=== PATIENT | female | born 1935 | race African-American/Black ===

== ENCOUNTER 2018-12-14 09:17 | Outpatient (CLI) | payer MEDICARE, BC, MEDICAID ==
[2018-12-14] MEDS ORDERED: Sodium Chloride 0.9% 15 ML NEB ONE (18:00)
--- NOTE | 2018-12-14 22:25 | HP ---
HISTORY OF PRESENT ILLNESS: Ms. Ly Box is a very pleasant 83-year-old, accompanied by her daughter and granddaughter, who presents to the [facility] for evaluation of a sacral pressure ulceration. The patient also has a pressure ulceration of the left heel. The patient's daughter states that the sacral pressure ulceration has been present for approximately 2 months. She states that the pressure ulceration of the left heel developed recently. The patient's daughter states that for the wound of the left heel the patient has been receiving treatment with Silvadene. Home Health is also performing dressing changes of "a collagen powder" for the sacral pressure ulceration. The patient was referred to the Wound Center by Dr. Pike on 11/19/2018. PAST MEDICAL HISTORY: 1. Diabetes mellitus. 2. Hypertension. 3. Glaucoma. 4. Dementia. PAST SURGICAL HISTORY: 1. Hysterectomy. 2. Left knee arthroplasty. 3. Bilateral corneal replacements. MEDICATIONS: 1. Probiotic. 2. Rivastigmine. 3. Premarin. 4. Lasix. 5. Metoprolol. 6. Clopidogrel. 7. Risperidone. 8. Vitamin D3. 9. Vitamin B12. 10. Olmesartan. 11. Sertraline. 12. Aspirin. 13. Memantine. 14. Vitamin E. 15. Centrum Silver. 16. Trazodone. 17. Travatan. ALLERGIES: NO KNOWN DIAGNOSED ALLERGIES. SOCIAL HISTORY: Social history is significant for tobacco use of up to 1/3 of a pack of cigarettes per day for 10 years. The patient apparently stopped smoking 30 years ago. The patient has no history of EtOH use. FAMILY HISTORY: Family history is significant for diabetes mellitus. The patient's mother and grandmother were both diagnosed with diabetes mellitus. Family history is negative for coronary artery disease. PHYSICAL EXAMINATION: VITAL SIGNS: Temperature 98.2, pulse 79, respirations 16, blood pressure 180/75. Accu-Chek 105. GENERAL: An 83-year-old female, lying on stretcher in examination room, in no acute distress. HEENT: Normocephalic, atraumatic. NECK: No nuchal rigidity. CHEST: Clear to auscultation. CV: Regular rate and rhythm. ABDOMEN: Soft. EXTREMITIES: The pressure ulceration of the left heel has healed completely. BACK: A wound of the sacrum is present which measures approximately 1.2 x 0.5 cm. Granulation tissue is present within the wound margins. Nonviable tissue present within the wound margins was debrided with an excisional full-thickness debridement. No purulent drainage is associated with the wound. No erythema of the skin surrounding the wound is present. No maceration of the skin of the periwound is noted. ASSESSMENT AND PLAN: 1. Pressure ulcerations of sacrum and left heel. As stated above, the pressure ulceration of the left heel has healed completely. For the sacral pressure ulceration, the present dressing changes at the current frequency will be continued after cleansing and irrigation with the assistance of Home Health. No antibiotics will be prescribed today based upon the appearance of the wound. As per the patient's daughter's request, the patient's daughter will contact the Wound Clinic in order to schedule the patient's next followup appointment. 2. Diabetes mellitus. The patient's Accu-Chek in clinic today is 105. The patient's daughter has been told that for optimal wound healing the patient's blood glucoses should remain below 150. 3. Hypertension. 4. Glaucoma. 5. Dementia. Job ID: [id number]
== END 2018-12-14 09:18 | disposition home or self-care (01) ==
LOC: WCC 09:17
PROVIDERS: ATTEND Family Medicine
DX: L89.159 Pressure ulcer of sacral region, unspecified stage (principal); L89.629 Pressure ulcer of left heel, unspecified stage; E11.9 Type 2 diabetes mellitus without complications; I10 Essential (primary) hypertension; F03.90 Unspecified dementia, unspecified severity, without behavioral disturbance, psychotic disturbance, mood disturbance, and anxiety; H40.9 Unspecified glaucoma
CPT/HCPCS: 11042; 99203; A4218; G0463

== ENCOUNTER 2019-01-28 09:04 | Outpatient (CLI) | payer MEDICARE, BC, MEDICAID ==
[~2019-01-28 09:04] MED LIST: Sodium Chloride 0.9% 15 ML NEB ONE
--- NOTE | 2019-01-28 10:25 | PRG ---
DATE OF SERVICE: 01/28/2019 HISTORY: Ms. Ly Box is a very pleasant 83-year-old, accompanied by her daughter and granddaughter, who presents to the [facility] Center for evaluation of a sacral pressure ulceration. The patient also has a pressure ulceration of the left heel. The patient's daughter previously stated that the sacral pressure ulceration had been present for approximately 2 months when the patient initially presented to the Wound Center. She stated that the pressure ulceration of the left heel had developed just prior to the patient's initial visit to the Wound Center. The patient's daughter stated that for the wound of the left heel, the patient had been receiving treatment with Silvadene. The patient continues to receive dressing changes with the assistance of home health. The patient was referred to the Wound Center by Dr. Pike on 11/19/2018. PHYSICAL EXAMINATION: VITAL SIGNS: Temperature 98.0, pulse 73, respirations 17, blood pressure 121/83. Accu-Chek 140. BACK: A wound of the sacrum is present, which measures approximately 3.0 x 3.0 cm. This wound, however, has divided into smaller ulcerations. Granulation tissue is present within the wound margins. Nonviable tissue present within the wound margins was debrided with an excisional full-thickness debridement. No purulent drainage is associated with the wound. No erythema of the skin surrounding the wound is present. No maceration of the skin of the periwound is noted. ASSESSMENT AND PLAN: 1. Pressure ulcerations of sacrum and left heel. The pressure ulceration of the left heel, which had healed completely at the time of the patient's last visit has recurred. The ulceration will be dressed with Kerlix, and the patient's daughter has been given a second prescription for a Heelift boot. For the sacral pressure ulceration, dressing changes of Fibracol or Promogran are to be performed on a daily basis after cleansing and irrigation with the assistance of home health. The patient's daughter states she will contact the Wound Clinic in order to schedule the patient's next followup appointment. 2. Diabetes mellitus. The patient's Accu-Chek in clinic today is 140. The patient's daughter has been reminded that for optimal wound healing, the patient's blood glucoses should remain below 150. 3. Hypertension. 4. Glaucoma. 5. Dementia. Job ID: [id number]
== END 2019-01-28 09:05 | disposition home or self-care (01) ==
LOC: WCC 09:04
PROVIDERS: ATTEND Family Medicine
DX: E11.621 Type 2 diabetes mellitus with foot ulcer (principal); L89.159 Pressure ulcer of sacral region, unspecified stage; I10 Essential (primary) hypertension; H40.9 Unspecified glaucoma; F03.90 Unspecified dementia, unspecified severity, without behavioral disturbance, psychotic disturbance, mood disturbance, and anxiety
CPT/HCPCS: A4218

== ENCOUNTER 2019-03-01 08:04 | Outpatient (CLI) | payer MEDICARE, BC, MEDICAID ==
--- NOTE | 2019-03-01 09:54 | CT ---
EXAM: Abdomen and pelvic CT scan with and without contrast: HISTORY: Gross hematuria COMPARISON: None FINDINGS: Small left pleural effusion. Pleural-based parenchymal changes bilaterally, partial atelectasis versus mild pneumonitis versus chr onic change. Significant motion artifact as well as artifact from the patient's arms overlying the abdomen and pel vis considerably lower the sensitivity of this study. Liver: Unremarkable. Gallbladder:Unremarkable. Pancreas:Unremarkable Spleen:Unremarkable. Adrenal glands:Unremarkable. Kidneys:No renal calculus or acute obstruction.No solid or cystic mass. No evidence for bowel obstruction. No CT evidence for acute appendicitis. There appear to be multiple bladder diverticuli. 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 Right periumbilical hernia containing fat. No abscess, adenopathy, or abnormal fluid collection within the abdomen or pelvis. IMPRESSION: Small left pleural effusion and bibasilar pulmonary parenchymal change. Multiple bladder diverticuli. Other findings as above.
[2019-03-01] MEDS ORDERED: Iopamidol 370 76% 100 ML VIAL ONE (10:57)
== END 2019-03-01 08:05 | disposition home or self-care (01) ==
LOC: CT 08:04
PROVIDERS: ATTEND Urology
DX: R31.0 Gross hematuria (principal); J90 Pleural effusion, not elsewhere classified; N32.3 Diverticulum of bladder; M47.816 Spondylosis without myelopathy or radiculopathy, lumbar region; K42.9 Umbilical hernia without obstruction or gangrene; M48.061 Spinal stenosis, lumbar region without neurogenic claudication
CPT/HCPCS: 74178; 82565; Q9967

== ENCOUNTER 2019-07-07 09:45 | Outpatient (CLI) | payer MEDICARE, BC ==
--- NOTE | 2019-07-07 11:13 | PRG ---
DATE OF SERVICE: 07/07/2019 HISTORY: Ms. Ly Box is a very pleasant 84-year-old accompanied by her daughter, who presents to the Wound Center for evaluation of a sacral pressure ulceration. The patient's daughter states that the sacral pressure ulceration had almost healed completely. She states that the patient fell and the sacral wound increased in its dimensions. She states that with the present dressing changes of Puracol, the wound however, has improved. The patient continues to receive assistance with dressing changes by Home Health. The patient's daughter states that she assists the patient with offloading of the sacral pressure ulceration. The patient's medical history is significant for diabetes mellitus, hypertension, glaucoma, and dementia. PHYSICAL EXAMINATION: VITAL SIGNS: Temperature 99.2, pulse rate 104, respirations are 19, and blood pressure 161/77. BACK: A wound of the sacrum is present, which measures approximately 2.6 x 1.0 cm. The dimensions of the wound at the time of the patient's visit on 01/28/2019 were approximately 3.0 x 3.0 cm. Granulation tissue is present within the wound margins. Nonviable tissue present within the wound margins was debrided with an excisional full-thickness debridement. No purulent drainage is associated with the wound. No erythema of the skin surrounding the wound is present. No maceration of the skin of the periwound is noted. ASSESSMENT AND PLAN: 1. Pressure ulceration of sacrum. For the sacral pressure ulceration, dressing changes of Puracol will be continued 3 times per week after cleansing and irrigation with the assistance of Home Health. The patient's daughter may perform dressing changes of Puracol on the remaining days of the week. The patient's daughter again states that she will contact the Wound Center in order to schedule the patient's next followup appointment. The importance of nutrition and offloading in achieving the healing of the ulceration has been discussed with the patient's daughter. Albumin and pre-albumin levels will be obtained. Orders will be transmitted to [facility] for the laboratory results to be transmitted to the [facility]. 2. Diabetes mellitus. Accu-Cheks will be obtained at the time of the patient's clinic visits. The patient's daughter has been reminded that for optimal wound healing, the patient's blood glucoses should remain below 150. 3. Hypertension. 4. Glaucoma. 5. Dementia. Job ID: [id number]
[2019-07-07] MEDS ORDERED: Sodium Chloride 0.9% 15 ML NEB ONE (18:00)
== END 2019-07-07 09:46 | disposition home or self-care (01) ==
LOC: WCC 09:45
PROVIDERS: ATTEND Family Medicine
DX: L89.159 Pressure ulcer of sacral region, unspecified stage (principal); E11.9 Type 2 diabetes mellitus without complications; I10 Essential (primary) hypertension; H40.9 Unspecified glaucoma; F03.90 Unspecified dementia, unspecified severity, without behavioral disturbance, psychotic disturbance, mood disturbance, and anxiety
CPT/HCPCS: 11042; A4218

== ENCOUNTER 2021-01-20 20:58 | Inpatient (IN) | payer MEDICARE, BC ==
[2021-01-20 21:54] LABS: Hemoglobin 10.3 g/dL (12.0-16.0); Mean Corpuscular HGB CONC 30.1 g/dL (32.0-36.0); Mean Corpuscular Volume 96.1 fL (78.0-98.0); Mean Platelet Volume 6.9 fL (7.4-10.4); Platelet Count 367 thou/uL (130-400); RBC Distribution Width 13.5 % (11.5-14.5); Red Blood Cell (RBC) Count 3.55 mill/uL (4.20-5.40); White Blood Cell (WBC) Count 8.5 thou/uL (4.8-10.8)
[2021-01-20] MEDS ORDERED: Vancomycin 1 GM/200 ML BAG ONE (21:57)
[2021-01-20] MEDS ORDERED: Morphine 2 MG/ML VIAL SLOW IVP PRN (22:14)
[2021-01-20] MEDS ORDERED: HumaLOG 300 UNITS/3 ML VIAL SC PRN (22:14)
[2021-01-20] MEDS ORDERED: hydrALAZINE 20 MG/ML VIAL SLOW IVP PRN (22:14)
[2021-01-20 22:15] LABS: ALT (SGPT) 18 U/L (8-55); AST (SGOT) 20 U/L (5-34); Albumin 2.6 g/dL (3.4-4.8); Alkaline Phosphatase 95 U/L (40-110); Anion Gap 14 mmol/L (10-20); BUN (Urea Nitrogen) 32 mg/dL (9.8-20.1); Bilirubin, Total 0.3 mg/dL (0.2-1.2); Calc. Creatinine Clearance 0 mL/min (70-130); Calcium 8.5 mg/dL (7.8-10.44); Carbon Dioxide 19 mmol/L (23-31); Chloride 102 mmol/L (98-107); Globulin 4.8 g/dL (2.4-3.5); Glucose 238 mg/dL (83-110); Lipase 10 U/L (8-78); Potassium 4.1 mmol/L (3.5-5.1); Protein, Total 7.4 g/dL (5.8-8.1); Sodium 131 mmol/L (136-145)
[2021-01-20] MEDS ORDERED: Dextrose 5% in Water 1,000 ML IV PRN (22:16)
[2021-01-20] MEDS ORDERED: HYDROcodone/Acetaminophen 5/325 mg Tablet PO PRN (22:16)
[2021-01-20] MEDS ORDERED: Acetaminophen 325 MG TAB PO PRN (22:16)
[2021-01-20] MEDS ORDERED: Bisacodyl 5 MG TAB PO PRN (22:16)
[2021-01-20 22:17] LABS: Band 28 % (5-11); Hypochromia SLIGHT = 6-15 cells (100X) (0-5/hpf); Lymphocytes 6 % (21-51); MDiff Complete? YES; Monocytes 5 % (0-10); Neutrophil 61 % (42-75); Platelet Morphology Comment Appears Adequate
[2021-01-20 23:24] LABS: SARS-CoV-2 NAA Rapid Test Not Detected (NotDetected)
[2021-01-21] MEDS: Dextrose 5 % And 0.9 % NaCl 1,000 ML IV SCH ×3 (03:54→16:06)
[2021-01-21 06:23] LABS: Hemoglobin 7.9 g/dL (12.0-16.0); Mean Corpuscular HGB CONC 30.7 g/dL (32.0-36.0); Mean Corpuscular Hemoglobin 29.8 pg (27.0-31.0); Mean Corpuscular Volume 97.1 fL (78.0-98.0); Mean Platelet Volume 6.7 fL (7.4-10.4); Platelet Count 388 thou/uL (130-400); RBC Distribution Width 13.3 % (11.5-14.5); Red Blood Cell (RBC) Count 2.65 mill/uL (4.20-5.40)
[2021-01-21 06:43] LABS: Band 38 % (5-11); Hypochromia SLIGHT = 6-15 cells (100X) (0-5/hpf); Lymphocytes 6 % (21-51); MDiff Complete? YES; Neutrophil 56 % (42-75); Platelet Morphology Comment Appears Adequate
[2021-01-21 07:44] LABS: ALT (SGPT) 16 U/L (8-55); AST (SGOT) 14 U/L (5-34); Albumin 2.6 g/dL (3.4-4.8); Alkaline Phosphatase 91 U/L (40-110); Anion Gap 16 mmol/L (10-20); BUN (Urea Nitrogen) 31 mg/dL (9.8-20.1); Bilirubin, Total 0.3 mg/dL (0.2-1.2); Calc. Creatinine Clearance 0 mL/min (70-130); Calcium 8.8 mg/dL (7.8-10.44); Carbon Dioxide 18 mmol/L (23-31); Chloride 104 mmol/L (98-107); Globulin 4.8 g/dL (2.4-3.5); Glucose 183 mg/dL (83-110); Potassium 4.1 mmol/L (3.5-5.1); Protein, Total 7.4 g/dL (5.8-8.1); Sodium 134 mmol/L (136-145)
[2021-01-21] MEDS ORDERED: Enoxaparin Sodium 40 MG/0.4 ML SYRINGE ONE (07:51)
[2021-01-21] MEDS ORDERED: Cefepime 1 GM VIAL ONE (07:51)
[2021-01-21] MEDS: Cefepime 1 GM in Sodium Chloride 0.9% 100 ML IVPB SCH ×2 (08:01→21:19)
[2021-01-21] MEDS: Enoxaparin Sodium 40 MG/0.4 ML SYRINGE SC SCH (08:01)
[2021-01-21] MEDS ORDERED: Vancomycin 1 GM in Premix Bag 1 BAG IVPB SCH (22:00)
[2021-01-22 05:06] LABS: #Lymphocytes 1.3 thou/uL (1.20-3.40); #Monocytes 0.3 thou/uL (0.11-0.59); #Neutrophils 6.5 thou/uL (1.40-6.50); %Basophils 0.1 % (0.0-1.0); %Eosinophils 0.4 % (0.0-10.0); %Lymphocytes 16.1 % (21.0-51.0); %Monocytes 3.9 % (0.0-10.0); %Neutrophils 79.6 % (42.0-75.0); Hemoglobin 6.9 g/dL (12.0-16.0); Mean Corpuscular HGB CONC 31.3 g/dL (32.0-36.0); Mean Corpuscular Hemoglobin 30.2 pg (27.0-31.0); Mean Corpuscular Volume 96.6 fL (78.0-98.0); Mean Platelet Volume 6.8 fL (7.4-10.4); Platelet Count 324 thou/uL (130-400); RBC Distribution Width 13.4 % (11.5-14.5); Red Blood Cell (RBC) Count 2.29 mill/uL (4.20-5.40); White Blood Cell (WBC) Count 8.2 thou/uL (4.8-10.8)
[2021-01-22 05:29] LABS: Anion Gap 10 mmol/L (10-20); BUN (Urea Nitrogen) 19 mg/dL (9.8-20.1); Calc. Creatinine Clearance 47 mL/min (70-130); Calcium 8.6 mg/dL (7.8-10.44); Carbon Dioxide 21 mmol/L (23-31); Chloride 108 mmol/L (98-107); Glucose 134 mg/dL (83-110); Potassium 3.6 mmol/L (3.5-5.1); Sodium 135 mmol/L (136-145)
[2021-01-22] MEDS: Enoxaparin Sodium 40 MG/0.4 ML SYRINGE SC SCH (08:26)
[2021-01-22] MEDS: Cefepime 1 GM in Sodium Chloride 0.9% 100 ML IVPB SCH ×2 (08:27→20:53)
[2021-01-22] MEDS: Dextrose 5 % And 0.9 % NaCl 1,000 ML IV SCH (14:22)
[2021-01-22 20:41] LABS: #Lymphocytes 1.2 thou/uL (1.20-3.40); #Monocytes 0.3 thou/uL (0.11-0.59); #Neutrophils 6.3 thou/uL (1.40-6.50); %Basophils 0.2 % (0.0-1.0); %Eosinophils 0.3 % (0.0-10.0); %Lymphocytes 14.7 % (21.0-51.0); %Monocytes 3.8 % (0.0-10.0); Hemoglobin 8.2 g/dL (12.0-16.0); Mean Corpuscular HGB CONC 32.4 g/dL (32.0-36.0); Mean Corpuscular Hemoglobin 30.8 pg (27.0-31.0); Mean Platelet Volume 6.5 fL (7.4-10.4); Platelet Count 279 thou/uL (130-400); RBC Distribution Width 13.4 % (11.5-14.5); Red Blood Cell (RBC) Count 2.65 mill/uL (4.20-5.40); White Blood Cell (WBC) Count 7.8 thou/uL (4.8-10.8)
[2021-01-22 21:15] LABS: Vancomycin, Trough 10.5 ug/mL
[2021-01-22] MEDS: VANCOMYCIN 1.25 GM/250 ML BAG 1.25 GM in Premix Bag 1 BAG IVPB SCH (22:40)
[2021-01-23] MEDS: Dextrose 5 % And 0.9 % NaCl 1,000 ML IV SCH ×2 (04:50→16:19)
[2021-01-23 05:05] LABS: #Lymphocytes 1.5 thou/uL (1.20-3.40); #Monocytes 0.4 thou/uL (0.11-0.59); #Neutrophils 5.7 thou/uL (1.40-6.50); %Basophils 0.6 % (0.0-1.0); %Eosinophils 0.5 % (0.0-10.0); %Lymphocytes 19.7 % (21.0-51.0); %Monocytes 5.1 % (0.0-10.0); %Neutrophils 74.2 % (42.0-75.0); Hemoglobin 7.7 g/dL (12.0-16.0); Mean Corpuscular HGB CONC 32.2 g/dL (32.0-36.0); Mean Corpuscular Hemoglobin 30.6 pg (27.0-31.0); Mean Corpuscular Volume 95.1 fL (78.0-98.0); Mean Platelet Volume 6.8 fL (7.4-10.4); Platelet Count 295 thou/uL (130-400); RBC Distribution Width 13.3 % (11.5-14.5); Red Blood Cell (RBC) Count 2.51 mill/uL (4.20-5.40); White Blood Cell (WBC) Count 7.7 thou/uL (4.8-10.8)
[2021-01-23 05:23] LABS: Anion Gap 10 mmol/L (10-20); BUN (Urea Nitrogen) 14 mg/dL (9.8-20.1); Calc. Creatinine Clearance 51 mL/min (70-130); Calcium 8.4 mg/dL (7.8-10.44); Carbon Dioxide 22 mmol/L (23-31); Chloride 110 mmol/L (98-107); Glucose 123 mg/dL (83-110); Potassium 3.6 mmol/L (3.5-5.1); Sodium 138 mmol/L (136-145)
[2021-01-23] MEDS: Cefepime 1 GM in Sodium Chloride 0.9% 100 ML IVPB SCH ×2 (07:59→20:48)
[2021-01-23] MEDS: Enoxaparin Sodium 40 MG/0.4 ML SYRINGE SC SCH (07:59)
[2021-01-23] MEDS: Dextrose 50% Abboject 50 ML SYRINGE SLOW IVP PRN (20:48)
[2021-01-23] MEDS: VANCOMYCIN 1.25 GM/250 ML BAG 1.25 GM in Premix Bag 1 BAG IVPB SCH (22:30)
[2021-01-24 09:57] VITALS: BMI 18.9
[2021-01-24] MEDS: Enoxaparin Sodium 40 MG/0.4 ML SYRINGE SC SCH (10:24)
[2021-01-24] MEDS: Dextrose 5 % And 0.9 % NaCl 1,000 ML IV SCH ×2 (10:24→23:15)
[2021-01-24] MEDS: Amlodipine 5 MG TAB PO SCH (10:25)
[2021-01-24] MEDS: Cefepime 1 GM in Sodium Chloride 0.9% 100 ML IVPB SCH ×2 (10:25→20:14)
[2021-01-24 21:38] LABS: Vancomycin, Trough 16.7 ug/mL
[2021-01-24] MEDS: VANCOMYCIN 1.25 GM/250 ML BAG 1.25 GM in Premix Bag 1 BAG IVPB SCH (23:14)
[2021-01-25] MEDS: Dextrose 50% Abboject 50 ML SYRINGE SLOW IVP PRN (05:47)
[2021-01-25] MEDS: Dextrose 5 % And 0.9 % NaCl 1,000 ML IV SCH (08:52)
[2021-01-25] MEDS: Amlodipine 5 MG TAB PO SCH (08:53)
[2021-01-25] MEDS: Cefepime 1 GM in Sodium Chloride 0.9% 100 ML IVPB SCH (08:53)
[2021-01-25] MEDS: Enoxaparin Sodium 40 MG/0.4 ML SYRINGE SC SCH (08:54)
[2021-01-25 15:29] VITALS: BP 125/70; TEMP 99.4
== END 2021-01-25 19:26 | disposition home health service (06) | DRG 177 ==
LOC: ERS 20:58 → ERHOLD 22:16 → 2NO 01-21 11:47
PROVIDERS: ADMIT Hospitalist; ATTEND Internal Medicine
PROC: 30233N1 Transfusion of Nonautologous Red Blood Cells into Peripheral Vein, Percutaneous Approach (ICD-10-PCS; principal; 2021-01-22)
DX: J69.0 Pneumonitis due to inhalation of food and vomit (principal); L89.154 Pressure ulcer of sacral region, stage 4; J96.01 Acute respiratory failure with hypoxia; R53.2 Functional quadriplegia; M86.8X7 Other osteomyelitis, ankle and foot; E11.52 Type 2 diabetes mellitus with diabetic peripheral angiopathy with gangrene; I96 Gangrene, not elsewhere classified; R64 Cachexia; Z68.1 Body mass index [BMI] 19.9 or less, adult; L97.429 Non-pressure chronic ulcer of left heel and midfoot with unspecified severity; E46 Unspecified protein-calorie malnutrition; Z20.822 Contact with and (suspected) exposure to COVID-19; M24.59 Contracture, other specified joint; E11.69 Type 2 diabetes mellitus with other specified complication; E11.621 Type 2 diabetes mellitus with foot ulcer; H40.9 Unspecified glaucoma; Z96.652 Presence of left artificial knee joint; G30.9 Alzheimer's disease, unspecified; F02.80 Dementia in other diseases classified elsewhere, unspecified severity, without behavioral disturbance, psychotic disturbance, mood disturbance, and anxiety; I50.9 Heart failure, unspecified; I11.0 Hypertensive heart disease with heart failure; R13.12 Dysphagia, oropharyngeal phase; L89.890 Pressure ulcer of other site, unstageable; Z87.891 Personal history of nicotine dependence; Z90.710 Acquired absence of both cervix and uterus; Z97.0 Presence of artificial eye; Z98.49 Cataract extraction status, unspecified eye; Z79.899 Other long term (current) drug therapy; Z79.02 Long term (current) use of antithrombotics/antiplatelets; Z79.890 Hormone replacement therapy
CPT/HCPCS: 0240U; 36415; 36416; 36430; 71045; 74230; 80048; 80053; 80202; 83605; 83690; 83735; 83880; 84484; 85007; 85025; 85027; 86850; 86900; 86901; 87040; 87086; 93005; 93923; 96365; 96366; J0360; J0692; J1650; J3370; J3490; P9016